=== PATIENT | male | born 1995 | race Caucasian/White ===

== ENCOUNTER 2021-05-13 22:10 | Emergency (ER) | payer MEDICAID ==
[~2021-05-13] VITALS: Ht 180.3 cm; Wt 73.7 kg
[2021-05-13 22:21] VITALS: BP 122/75
--- NOTE | 2021-05-13 22:40 | NUR ---
URINE COLLECTED AND SENT TO LAB FOR A DRUG SCREEN
[2021-05-13 22:57] LABS: AMPHETAMINE SCREEN, URINE Negative (Negative); BARBITURATE SCREEN, URINE Negative (Negative); BENZODIAZEPINE SCREEN, URINE Negative (Negative); CANNABINOID SCREEN, URINE Positive (Negative); COCAINE SCREEN, URINE Negative (Negative); METHADONE SCREEN, URINE Negative (Negative); OPIATE SCREEN, URINE Negative (Negative)
--- NOTE | 2021-05-14 01:47 | NUR ---
PT NOT IN LOBBY WHEN CALLED FOR ROOM.
--- NOTE | 2021-05-14 01:58 | NUR ---
PT NOT IN LOBBY WHEN CALLED FOR ROOM. [facility]BS
== END 2021-05-14 02:00 | disposition left against medical advice (07) ==
LOC: ED 22:30
DX: F15.10 Other stimulant abuse, uncomplicated (principal)
CPT/HCPCS: 80307; 99283